=== PATIENT | male | born 1940 | race Caucasian/White ===

== ENCOUNTER 2023-12-26 23:50 | Inpatient (IN) | payer MEDICARE, MEDICAID ==
[~2023-12-26] VITALS: Ht 170.2 cm; Wt 86.7 kg
[2023-12-26 23:55] VITALS: PULSE 87; RESP 22; O2SAT 97
[2023-12-27] VITALS (42 sets, daily range): BP systolic 101–146; BP diastolic 58–102; PULSE 80–101; RESP 11–30; TEMP 97.2–99.1; O2SAT 84–100
[2023-12-27] MEDS: HEPARIN SODIUM (PORCINE) 5000 UNITS/ML 1ML VIAL IV ONE (00:09)
[2023-12-27] MEDS: MORPHINE SULFATE 4 MG/ML SYR/VIAL IV ONE (00:10)
[2023-12-27] MEDS: NITROGLYCERIN 0.2MG/HR TOPICAL PATCH TD ONE (00:11)
[2023-12-27] MEDS: ONDANSETRON HCL 4 MG/2 ML VIAL IV ONE (00:11)
[2023-12-27 00:22] LABS: Basophils # (auto) 0.1 10 ^3/uL (0-0.2); Basophils % (auto) 0.7 % (0.0-2.0); Eosinophils # (auto) 0.3 10 ^3/uL (0-0.8); Eosinophils % (auto) 3.8 % (0.0-7.0); Hematocrit 50.3 % (41.0-53.0); Hemoglobin 17.5 g/dL (13.5-17.5); Lymphocytes # (auto) 3.9 10 ^3/uL (0.4-5.4); Mean Corpuscular Hemoglobin 30.4 pg (28.0-32.0); Mean Corpuscular Hgb Conc. 34.8 g/dL (32.0-36.0); Mean Corpuscular Volume 87.3 fL (80.0-100.0); Monocytes % (auto) 10.5 % (0.0-12.0); Neutrophils # (auto) 3.8 10 ^3/uL (1.6-8.6); Nucleated Red Blood Cells % 0.2 %; Platelet Count (auto) 244 10^3/uL (140-450); Red Blood Cells 5.76 10^6/uL (4.5-5.90); White Blood Cell 9.1 10^3/uL (4.4-10.8)
[2023-12-27] MEDS: VERAPAMIL 2.5MG/ML INJ 2ML VIAL IV ONE ×2 (00:24→01:19)
[2023-12-27] MEDS: ANGIOMAX 250 MG VIAL IV ONE (00:24)
[2023-12-27] MEDS: fentaNYL CITRATE 100 MCG/2 ML VL ONE (00:25)
[2023-12-27] MEDS: LIDOCAINE 2%HCL (LOCAL ANESTH.) INJ 20ML MDV ONE (00:25)
[2023-12-27] MEDS: SODIUM CHL 0.9% 50 ML ONE (00:25)
[2023-12-27] MEDS: MIDAZOLAM HCL 2MG/2ML 2ml VIAL (1mg/ml) ONE (00:25)
[2023-12-27] MEDS: IODIXANOL 320MG/ML 100ML BTL IV ONE ×2 (00:26→01:13)
[2023-12-27] MEDS: HEPARIN SODIUM (PORCINE) 5000 UNITS/ML 1ML VIAL ONE (00:28)
[2023-12-27 00:33] LABS: INR 1.03 (0.9-1.15); Partial Thromboplastin Time 26.5 SEC (24.5-34.5); Prothrombin Time 10.9 sec (9.3-11.8)
[2023-12-27 00:34] LABS: Alanine Aminotransferase 32 U/L (7-40); Albumin 4.7 g/dL (3.2-4.8); Alkaline Phosphatase 104 U/L (46-116); Anion Gap 7 (5-15); Aspartate Aminotransferase 25 U/L (13-40); BUN/Creatinine Ratio 19.1 (10.0-20.0); Bilirubin, Total 0.5 mg/dL (0.2-1.0); Blood Urea Nitrogen 18 mg/dL (9-23); Calcium 9.5 mg/dL (8.7-10.4); Carbon Dioxide 24 mmol/L (20-30); Chloride 109 mmol/L (98-107); Glucose 144 mg/dL (74-106); Potassium 4.1 mmol/L (3.5-5.1); Sodium 140 mmol/L (136-145); Total Protein 7.7 g/dL (5.7-8.2)
[2023-12-27] MEDS: methylPREDNISolone SOD SUCC 125 MG/2 ML VL ONE (00:55)
[2023-12-27] MEDS: ATROPINE SULF 1 MG/10ml SYR ONE (00:55)
[2023-12-27] MEDS: FAMOTIDINE (10MG/ML) 2ML VL IV ONE (00:56)
[2023-12-27] MEDS: EPINEPHrine HCL 1 MG/10 ML SYRG ONE (00:56)
[2023-12-27] MEDS: diphenhdrAMINE HCL 50 MG/1 ML VL ONE (00:56)
[2023-12-27] MEDS: ATROPINE SULFATE 0.4 MG/1 ML VIAL ONE (01:04)
[2023-12-27] MEDS ORDERED: HEPARIN DRIP/D5W 100UNITS/ML 250 ML IV SCH ×3 (01:30→09:15)
[2023-12-27] MEDS: TICAGRELOR 90 MG TAB ONE (01:34)
[2023-12-27] MEDS ORDERED: HYDROcodone-ACET 5/325MG TAB PO PRN (01:45)
[2023-12-27] MEDS ORDERED: ACETAMINOPHEN 500 MG TAB PO PRN (01:45)
[2023-12-27] MEDS ORDERED: NITROGLYCERIN 0.4 MG SL TAB SL PRN ×2 (01:45)
[2023-12-27] MEDS ORDERED: ONDANSETRON HCL 4 MG/2 ML VIAL IV PRN (01:45)
[2023-12-27] MEDS ORDERED: MORPHINE SULFATE 4 MG/ML SYR/VIAL IV PRN (01:45)
[2023-12-27] MEDS ORDERED: MORPHINE SULFATE INJ 2 MG/ml SYRG IV PRN (01:45)
[2023-12-27] MEDS: ATORVASTATIN 20 MG TAB PO ONE (02:00)
[2023-12-27] MEDS: HEPARIN DRIP/D5W 100UNITS/ML 250 ML IV SCH (02:37)
[2023-12-27 02:58] LABS: Alanine Aminotransferase 32 U/L (7-40); Albumin 4.3 g/dL (3.2-4.8); Alkaline Phosphatase 93 U/L (46-116); Anion Gap 3 (5-15); Aspartate Aminotransferase 45 U/L (13-40); BUN/Creatinine Ratio 16.5 (10.0-20.0); Blood Urea Nitrogen 17 mg/dL (9-23); Carbon Dioxide 26 mmol/L (20-30); Chloride 110 mmol/L (98-107); Glucose 136 mg/dL (74-106); Potassium 4.6 mmol/L (3.5-5.1); Sodium 139 mmol/L (136-145)
[2023-12-27 02:59] LABS: Bilirubin, Total 0.4 mg/dL (0.2-1.0); Total Protein 7.3 g/dL (5.7-8.2)
[2023-12-27] MEDS: SODIUM CHLOR 0.9% PF (SALINE LOCK) 10ML VIAL/SYR IV SCH (07:22)
[2023-12-27 08:18] LABS: INR 1.03 (0.9-1.15); Partial Thromboplastin Time 62.3 SEC (24.5-34.5); Prothrombin Time 10.9 sec (9.3-11.8)
[2023-12-27] MEDS: ASPirin 81 mg TAB PO SCH (10:01)
[2023-12-27] MEDS: TICAGRELOR 90 MG TAB PO SCH (10:02)
[2023-12-27] MEDS: LISINOPRIL 5 MG TAB PO SCH (10:02)
[2023-12-27] MEDS: ATORVASTATIN 20 MG TAB PO SCH (21:06)
[2023-12-27 22:44] LABS: Urine Bacteria MANY /hpf (None Seen); Urine Blood 1+ /uL (Negative); Urine Clarity Turbid (Clear); Urine Color Colorless (Yellow); Urine Protein, UAD TRACE (Negative); Urine Specific Gravity 1.016 (1.001-1.035); Urine Urobilinogen Normal (Negative); Urine WBC 592 /hpf (0 - 3); Urine pH 5.5 (5.0-9.0)
[2023-12-28] VITALS (29 sets, daily range): BP systolic 117–155; BP diastolic 77–101; PULSE 93–126; RESP 14–33; TEMP 98.3–99.5; O2SAT 92–100
[2023-12-28 03:30] LABS: Basophils # (auto) 0 10 ^3/uL (0-0.2); Basophils % (auto) 0.2 % (0.0-2.0); Eosinophils # (auto) 0 10 ^3/uL (0-0.8); Eosinophils % (auto) 0.1 % (0.0-7.0); Hemoglobin 17.2 g/dL (13.5-17.5); Lymphocytes # (auto) 1.8 10 ^3/uL (0.4-5.4); Lymphocytes % (auto) 12.3 % (10.0-50.0); Mean Corpuscular Hemoglobin 30.5 pg (28.0-32.0); Mean Corpuscular Hgb Conc. 35.1 g/dL (32.0-36.0); Mean Corpuscular Volume 86.9 fL (80.0-100.0); Monocytes # (auto) 1.4 10 ^3/uL (0-1.3); Monocytes % (auto) 9.6 % (0.0-12.0); Neutrophils # (auto) 11.2 10 ^3/uL (1.6-8.6); Neutrophils % (auto) 77.8 % (37.0-80.0); Nucleated Red Blood Cells % 0.1 %; Platelet Count (auto) 244 10^3/uL (140-450); Red Blood Cells 5.64 10^6/uL (4.5-5.90); Red Cell Distribution Width 14.9 % (11.8-14.3); White Blood Cell 14.3 10^3/uL (4.4-10.8)
[2023-12-28 03:47] LABS: Alanine Aminotransferase 48 U/L (7-40); Albumin 4.4 g/dL (3.2-4.8); Alkaline Phosphatase 92 U/L (46-116); Anion Gap 7 (5-15); Aspartate Aminotransferase 127 U/L (13-40); Blood Urea Nitrogen 19 mg/dL (9-23); Calcium 9.6 mg/dL (8.7-10.4); Carbon Dioxide 24 mmol/L (20-30); Chloride 106 mmol/L (98-107); Cholesterol 187 mg/dL (< 200); Glucose 135 mg/dL (74-106); LDL Cholesterol 113 mg/dL (< 100); Sodium 137 mmol/L (136-145); Triglycerides 80 mg/dL (< 150)
[2023-12-28 03:48] LABS: Bilirubin, Total 0.7 mg/dL (0.2-1.0); HDL Cholesterol 53 mg/dL (40-59); Total Protein 7.6 g/dL (5.7-8.2)
[2023-12-28] MEDS: IODIXANOL 320MG/ML 100ML BTL IV ONE (12:53)
[2023-12-28] MEDS: LIDOCAINE 2%HCL (LOCAL ANESTH.) INJ 20ML MDV ONE (12:53)
[2023-12-28] MEDS: ANGIOMAX 250 MG VIAL IV ONE (12:56)
[2023-12-28] MEDS: fentaNYL CITRATE 100 MCG/2 ML VL ONE (12:56)
[2023-12-28] MEDS: VERAPAMIL 2.5MG/ML INJ 2ML VIAL IV ONE (12:56)
[2023-12-28] MEDS: HEPARIN SODIUM (PORCINE) 5000 UNITS/ML 1ML VIAL ONE (12:56)
[2023-12-28] MEDS: MIDAZOLAM HCL 2MG/2ML 2ml VIAL (1mg/ml) ONE (12:57)
[2023-12-28] MEDS: SODIUM CHL 0.9% 50 ML ONE (12:57)
[2023-12-28] MEDS: ASPirin 81 mg TAB ONE (13:54)
[2023-12-28] MEDS: TICAGRELOR 90 MG TAB ONE (13:54)
[2023-12-29] VITALS (8 sets, daily range): BP systolic 100–143; BP diastolic 64–93; PULSE 84–126; RESP 16–24; TEMP 98.3–98.7; O2SAT 89–97
[2023-12-29] MEDS: LORazepam 0.5 MG TAB PO PRN (01:32)
[2023-12-29 05:14] LABS: Basophils # (auto) 0 10 ^3/uL (0-0.2); Basophils % (auto) 0.2 % (0.0-2.0); Eosinophils # (auto) 0 10 ^3/uL (0-0.8); Eosinophils % (auto) 0.1 % (0.0-7.0); Hematocrit 48.3 % (41.0-53.0); Hemoglobin 17.1 g/dL (13.5-17.5); Lymphocytes # (auto) 1.3 10 ^3/uL (0.4-5.4); Lymphocytes % (auto) 11.1 % (10.0-50.0); Mean Corpuscular Hemoglobin 30.7 pg (28.0-32.0); Mean Corpuscular Hgb Conc. 35.4 g/dL (32.0-36.0); Mean Corpuscular Volume 86.9 fL (80.0-100.0); Monocytes # (auto) 1.9 10 ^3/uL (0-1.3); Monocytes % (auto) 16.4 % (0.0-12.0); Neutrophils # (auto) 8.5 10 ^3/uL (1.6-8.6); Neutrophils % (auto) 72.2 % (37.0-80.0); Nucleated Red Blood Cells % 0.1 %; Platelet Count (auto) 224 10^3/uL (140-450); Red Blood Cells 5.56 10^6/uL (4.5-5.90); Red Cell Distribution Width 14.9 % (11.8-14.3); White Blood Cell 11.7 10^3/uL (4.4-10.8)
[2023-12-29 05:21] LABS: Alanine Aminotransferase 36 U/L (7-40); Albumin 4.2 g/dL (3.2-4.8); Alkaline Phosphatase 83 U/L (46-116); Anion Gap 10 (5-15); Aspartate Aminotransferase 56 U/L (13-40); BUN/Creatinine Ratio 24.7 (10.0-20.0); Blood Urea Nitrogen 24 mg/dL (9-23); Carbon Dioxide 20 mmol/L (20-30); Chloride 105 mmol/L (98-107); Glucose 126 mg/dL (74-106); Potassium 3.3 mmol/L (3.5-5.1); Sodium 135 mmol/L (136-145)
[2023-12-29 05:22] LABS: Bilirubin, Total 1.2 mg/dL (0.2-1.0); Total Protein 7.1 g/dL (5.7-8.2)
[2023-12-29] MEDS ORDERED: CARV-214 PO (09:50)
[2023-12-29] MEDS ORDERED: LISI-275 PO (09:50)
[2023-12-29] MEDS ORDERED: ASPI-325 PO (09:50)
[2023-12-29] MEDS ORDERED: ATOR20TA50 PO (09:50)
[2023-12-29] MEDS ORDERED: TICA90TA PO (09:50)
[2023-12-29] MEDS: POTASSIUM CHL 20 Meq TABLET PO ONE (09:51)
[2023-12-30] VITALS (10 sets, daily range): BP systolic 99–148; BP diastolic 62–91; PULSE 73–115; RESP 16–22; TEMP 97.8–98.6; O2SAT 92–96
[2023-12-30] MEDS ORDERED: CLOP75TA28 PO (10:06)
[2023-12-30] MEDS: CLOPIDOGREL BISULFATE 75 MG TAB PO ONE (11:29)
[2023-12-31] VITALS (7 sets, daily range): BP systolic 120–157; BP diastolic 64–87; PULSE 85–95; RESP 16–23; TEMP 98.3–98.5; O2SAT 95–100
[2023-12-31] MEDS: CLOPIDOGREL BISULFATE 75 MG TAB PO SCH (08:04)
== END 2023-12-31 13:15 | disposition home health service (06) | DRG 174 ==
LOC: EDBD 23:50 → ER 23:50 → TELE 12-27 01:41 → ICU WEST 12-27 01:55 → TELE-CENTR 12-28 17:00
PROVIDERS: ADMIT Internal Medicine; ATTEND Internal Medicine
PROC: 027034Z Dilation of Coronary Artery, One Artery with Drug-eluting Intraluminal Device, Percutaneous Approach (ICD-10-PCS; principal; 2023-12-27)
PROC: B211YZZ Fluoroscopy of Multiple Coronary Arteries using Other Contrast (ICD-10-PCS; 2023-12-27)
PROC: B215YZZ Fluoroscopy of Left Heart using Other Contrast (ICD-10-PCS; 2023-12-27)
PROC: 4A023N7 Measurement of Cardiac Sampling and Pressure, Left Heart, Percutaneous Approach (ICD-10-PCS; 2023-12-27)
PROC: 027035Z Dilation of Coronary Artery, One Artery with Two Drug-eluting Intraluminal Devices, Percutaneous Approach (ICD-10-PCS; 2023-12-28)
PROC: 3E03317 Introduction of Other Thrombolytic into Peripheral Vein, Percutaneous Approach (ICD-10-PCS; 2023-12-28)
DX: I21.11 ST elevation (STEMI) myocardial infarction involving right coronary artery (principal); J96.00 Acute respiratory failure, unspecified whether with hypoxia or hypercapnia; I44.2 Atrioventricular block, complete; E66.9 Obesity, unspecified; G89.29 Other chronic pain; E78.5 Hyperlipidemia, unspecified; R74.01 Elevation of levels of liver transaminase levels; I10 Essential (primary) hypertension; I25.10 Atherosclerotic heart disease of native coronary artery without angina pectoris; I25.2 Old myocardial infarction; Z68.29 Body mass index [BMI] 29.0-29.9, adult; Z91.013 Allergy to seafood; Z79.899 Other long term (current) drug therapy; Z79.82 Long term (current) use of aspirin
CPT/HCPCS: 36415; 71045; 80053; 80061; 81001; 82962; 83880; 84484; 85025; 85379; 85610; 85730; 87081; 92941; 93005; 93306; 93458; 97163; 99152; 99291; C1751; C1874; C1887; G0378; J0461; J2250; J2405; J3490; Q9967

== ENCOUNTER 2024-10-18 02:23 | Inpatient (IN) | payer OTHER, MEDICARE, MEDICAID ==
[~2024-10-18] VITALS: Ht 170.2 cm; Wt 82.5 kg
[2024-10-18] VITALS (8 sets, daily range): BP systolic 94–153; BP diastolic 57–90; PULSE 32–79; RESP 12–18; TEMP 96.3–97.9; O2SAT 92–98
[~2024-10-18 02:23] MED LIST: ASPI-325 PO; ATOR20TA50 PO; CARV-214 PO; CLOP75TA28 PO; LISI-275 PO
--- NOTE | 2024-10-18 02:53 | ED.PDOC ---
History of Present Illness HPI Comments 84-year-old male brought in by ambulance from home after his ex- called the ambulance because the patient is has some generalized weakness and she noted that his heart rate was low. Patient states he takes metoprolol beta chelsie. Patient has no other complaints other than feeling some generalized weakness and fatigue Chief Complaint: General Weakness Time Seen by MD: 02:27 Allergies: Coded Allergies: NO KNOWN ALLERGIES (Unverified , 12/27/23) Home Meds Active Scripts Clopidogrel Bisulfate (Plavix) 75 Mg Tab, 1 TAB PO DAILY PRN for 3 Days, #3 TAB 3 Refills Prov:VAZQUEZ MARTINEZ MD 12/30/23 Carvedilol (COREG) 3.125 Mg Tab, 3.125 MG PO BID for 30 Days, #60 TAB 3 Refills Prov:VAZQUEZ MARTINEZ MD 12/29/23 Lisinopril (Lisinopril) 5 Mg Tab, 2.5 MG PO DAILY for 30 Days, #15 TAB 3 Refills Prov:VAZQUEZ MARTINEZ MD 12/29/23 Atorvastatin Calcium (ATORVASTATIN CALCIUM) 20 Mg Tab, 40 MG PO HS for 30 Days, #30 TAB 3 Refills Prov:VAZQUEZ MARTINEZ MD 12/29/23 Aspirin (Aspirin Low Dose) 81 Mg Tab, 81 MG PO DAILY for 30 Days, #30 TAB 3 Refills Prov:VAZQUEZ MARTINEZ MD 12/29/23 Information Source: Patient, Emergency Med Personnel Mode of Arrival: EMS Severity: Moderate Timing: Days Duration: Since onset Past Medical History PAST MEDICAL HISTORY: HTN Surgical History: Denies all surgeries Family History Family History: Unknown Social History Smoker: Non-Smoker Alcohol: Denies ETOH Use Drugs: Denies Drug Use Lives In: Home Constitutional: reports: fatigue, weakness Cardiovascular: reports: others (slow heart rate) All Other Systems: Reviewed and Negative Physical Exam General Appearance: Mild Distress HEENT: Normal ENT Inspection, Pharynx Normal, TMs Normal Neck: Full Range of Motion, Non-Tender, Normal, Normal Inspection Respiratory: Chest Non-Tender, Lungs Clear, No Accessory Muscle Use, No Respiratory Distress, Normal Breath Sounds Cardiovascular: Other (bradycardia, regular rhythm) Breast Exam: Deferred Gastrointestinal: No Organomegaly, Non Tender, No Pulsatile Mass, Normal Bowel Sounds, Soft Genitalia: Deferred Pelvic: Deferred Rectal: Deferred Extremities: No calf tenderness, Normal capillary refill, Normal inspection, Normal range of motion, Non-tender, No pedal edema Musculoskeletal : Apperance: Normal Neurologic: Alert, checker loader II-XII nml as Tested, No Motor Deficits, Normal Affect, Normal Mood, No Sensory Deficits Cerebellar Function: Normal Reflexes: Normal Skin: Dry, Normal Color, Warm Lymphatic: No Adenopathy Was a procedure done? Was a procedure done?: No Differential Dx Considerations may include: Differential diagnosis includes but is not limited to: coronary ischemia, dehydration, sepsis, electrolyte abnormality, symptomatic anemia, hypovolemia and others X-Ray, Labs, Meds, VS Vital Signs Date Time Temp Pulse Resp B/P (MAP) Pulse Ox O2 Delivery O2 Flow Rate FiO2 10/18/24 02:55 98.7 16 125/62 (83) 96 98.7 10/18/24 02:55 32 18 98 Room Air* 0 21 10/18/24 02:26 103 10/18/24 02:26 97.5 21 16 118/84 (95) 98 97.5 Lab Test 10/18/24 03:40 10/18/24 02:52 10/18/24 02:48 Range/Units Troponin I High Sensitivity 5 5 </=54 ng/L POC Glucose 118 H 70-106 mg/dl White Blood Count 7.6 4.4-10.8 10^3/uL Red Blood Count 5.26 4.5-5.90 10^6/uL Hemoglobin 16.0 13.5-17.5 g/dL Hematocrit 46.4 41.0-53.0 % Mean Corpuscular Volume 88.2 80.0-100.0 fL Mean Corpuscular Hemoglobin 30.5 28.0-32.0 pg Mean Corpuscular Hemoglobin Concent 34.5 32.0-36.0 g/dL Red Cell Distribution Width 14.7 H 11.8-14.3 % Platelet Count 228 140-450 10^3/uL Mean Platelet Volume 7.7 6.9-10.8 fL Neutrophils (%) (Auto) 41.5 37.0-80.0 % Lymphocytes (%) (Auto) 41.4 10.0-50.0 % Monocytes (%) (Auto) 11.6 0.0-12.0 % Eosinophils (%) (Auto) 4.5 0.0-7.0 % Basophils (%) (Auto) 1.0 0.0-2.0 % Neutrophils # (Auto) 3.1 1.6-8.6 10 ^3/uL Lymphocytes # (Auto) 3.1 0.4-5.4 10 ^3/uL Monocytes # (Auto) 0.9 0-1.3 10 ^3/uL Eosinophils # (Auto) 0.3 0-0.8 10 ^3/uL Basophils # (Auto) 0.1 0-0.2 10 ^3/uL Nucleated Red Blood Cells 0.2 % Prothrombin Time 10.9 9.3-11.8 sec Prothrombin Time INR 1.03 0.9-1.15 Activated Partial Thromboplast Time 27.1 24.5-34.5 SEC Sodium Level 142 136-145 mmol/L Potassium Level 4.3 3.5-5.1 mmol/L Chloride Level 107 98-107 mmol/L Carbon Dioxide Level 26 20-31 mmol/L Anion Gap 9 5-15 Blood Urea Nitrogen 23 9-23 mg/dL Creatinine 1.13 0.700-1.30 mg/dL Glomerular Filtration Rate Calc 64 >90 mL/min BUN/Creatinine Ratio 20.4 H 10.0-20.0 Serum Glucose 118 H 74-106 mg/dL Calcium Level 8.9 8.7-10.4 mg/dL Magnesium Level 2.2 1.6-2.6 mg/dL Total Bilirubin 0.7 0.2-1.0 mg/dL Aspartate Amino Transferase (AST) 25 <34 U/L Alanine Aminotransferase (ALT) 30 7-40 U/L Alkaline Phosphatase 91 46-116 U/L B-Type Natriuretic Peptide 48.22 0-100 pg/mL Total Protein 6.9 5.7-8.2 g/dL Albumin 4.3 3.2-4.8 g/dL Thyroid Stimulating Hormone (TSH) 2.15 0.55-4.78 uIU/mL [facility] [id number] [place] [id number] Ph: [phone] DIAGNOSTIC IMAGING Diagnostic Imaging Report : [id number] Signed PATIENT: TAYLOR TEJEDA ACCT: [id number] UNIT: [id number] : 1940 LOC: ER ROOM / BED: / AGE / SEX: 84 / M ADM STATUS: REG ER SERVICE [id number] ORDERING PHYSICIAN: SARAH EID MD PROCEDURE(s): CXRP - CHEST PORTABLE REASON: chest pain ORDER NUMBER(s): [id number], ACCESSION NUMBER(s): [id number] CHEST RADIOGRAPH Indication: chest pain Technique: Single frontal view of the chest was obtained COMPARISON: XY CHEST PORTABLE on DOS: 12/28/23, XY CHEST PORTABLE on DOS: 12/27/23 FINDINGS: Lines and Tubes: None Lungs: Mild medial right lung base pulmonary airspace disease. The remaining lung zones are clear without evidence of focal consolidation. Pleura: No effusion. No pneumothorax. Cardiomediastinal contours: Unremarkable Bones: Unremarkable IMPRESSION: 1. Mild medial right lung base pulmonary airspace disease. ATED BY: JHONNY HART MD DICTATED DATE/TIME: 10/18/24323 SIGNED BY: JHONNY HART MD SIGNED DATE/TIME: 10/18/24323 CC: Time of 1ST Reevaluation: 02:45 Reevaluation 1ST: Unchanged Patient Education/Counseling: Diagnosis, Treatment Family Education/Counseling: No Family Present SEPSIS Sepsis Screen Recent Procedure: No On Antibiotic Therapy: No Respiratory Rate >20: No Heart Rate >90: No Temp<36 C (96.8 F) or >38.3 C: No SBP <90 or MAP <65 mmHG: No New Acute Mental Status Change: No Is the patient on CPAP, BIPAP,: No IV fluid challenge completed?: No Orders/Vitals/Labs Physician Orders Chest Portable (10/18/24 02:39) Net Front End Developer (10/18/24 02:39) Electrocardigram (10/18/24 02:39) Troponin-I Hs (10/18/24 05:39) Vital Signs Date Time Temp Pulse Resp B/P (MAP) Pulse Ox O2 Delivery O2 Flow Rate FiO2 10/18/24 02:55 98.7 16 125/62 (83) 96 98.7 10/18/24 02:55 32 18 98 Room Air* 0 21 10/18/24 02:26 103 10/18/24 02:26 97.5 21 16 118/84 (95) 98 97.5 Laboratory Tests Test 10/18/24 02:48 White Blood Count 7.6 10^3/uL (4.4-10.8) Departure 1 Departure Time of Disposition: 04:36 Impression: Primary Impression: Symptomatic bradycardia Additional Impression: Pneumonitis Disposition: ADMITTED INPATIENT Condition: Guarded Discharged With: Self Comments Symptomatic Bradycardia with Suspected Pneumonia Chief Complaint: Generalized weakness for two days with bradycardia History of Present Illness: 84-year-old male brought in by ambulance with complaints of generalized weakness for the past two days. Patient's ex- noted that his heart rate was low. The patient reports compliance with his medication regimen, which includes metoprolol, a beta-chelsie. He has a known history of hypertension. Upon initial evaluation, the patient was found to be severely bradycardic with heart rate in the twenties, which later decreased to the thirties on reevaluation. Review of Systems: Constitutional: Positive for generalized weakness. Cardiovascular: Positive for bradycardia. Respiratory: Possible respiratory symptoms given radiographic findings of right lung base abnormality. All other systems: Deferred or unremarkable based on available information. Medications: Metoprolol (dose not specified) Other medications not specified in mangle feeder Vital Signs: Heart Rate: Initially in the twenties, later in the thirties Other vital signs not documented in mangle feeder Physical Exam: General: 84-year-old male in no acute distress. Cardiovascular: Severely bradycardic with heart rate in the twenties initially, later in the thirties. Remainder of physical exam described as unremarkable. Lab Results: CBC: Unremarkable Chemistry panel: Unremarkable Troponin: Normal Imaging and Other Relevant Results: Chest X-ray: Shows airspace disease versus atelectasis in the right lung base Medical Decision Making: Summary Statement: 84-year-old male with history of hypertension on metoprolol presenting with symptomatic bradycardia and radiographic findings concerning for pneumonia. Problem List: 1. Symptomatic bradycardia (HR 20s-30s) 2. Suspected pneumonia 3. Hypertension Differential Diagnosis: For bradycardia: Beta-chelsie effect, sick sinus syndrome, AV block, electrolyte abnormalities, hypothyroidism, increased vagal tone. For lung findings: Pneumonia, atelectasis, pulmonary edema, malignancy. ED Course: Patient evaluated for generalized weakness and found to be severely bradycardic. Labs were unremarkable including normal troponin. Chest X-ray revealed possible pneumonia. Patient was treated with Rocephin and azithromycin for suspected pneumonia. Decision made to admit for management of symptomatic bradycardia and pneumonia. Assessment and Plan: 1. Symptomatic Bradycardia: - Heart rate in 20s-30s, likely exacerbated by metoprolol - Consider temporary hold of beta-chelsie - Cardiac monitoring - Cardiology consultation for possible temporary pacemaker if bradycardia persists - Evaluate for underlying causes including infection 2. Suspected Pneumonia: - Right lung base infiltrate on chest X-ray - Started on Rocephin and azithromycin - Monitor respiratory status - Consider respiratory cultures if available 3. Hypertension: - Chronic condition, currently on metoprolol - Will need to reassess antihypertensive regimen given bradycardia Disposition: Admit to telemetry unit for management of symptomatic bradycardia and treatment of suspected pneumonia. Additional Notes: Patient admitted for symptomatic bradycardia and suspected pneumonia Billing Information: ICD-10: R00.1 - Bradycardia, unspecified ICD-10: J18.9 - Pneumonia, unspecified organism ICD-10: I10 - Essential (primary) hypertension Critical Care Note Critical Care Time?: Yes (35 min-critical care time only) Critical care comment: Total critical care time: Approximately 36 minutes Due to a high probability of clinically significant, life threatening deterioration, the patient required my highest level of preparedness to intervene emergently and I personally spent this critical care time directly and personally managing the patient. This critical care time included obtaining a history; examining the patient; pulse oximetry; ordering and review of studies; arranging urgent treatment with development of a management plan; evaluation of patient's response to treatment; frequent reassessment; and, discussions with other providers. This critical care time was performed to assess and manage the high probability of imminent, life-threatening deterioration that could result in multi-organ failure. It was exclusive of separately billable procedures and treating other patients. Stability Stability form required: No Heart Score Heart Score: Heart Score Response (Comments) Value History Slightly Suspicious 0 EKG Repolarization Disturb 1 Age >65 2 Risk Factors 1 or 2 risk factors 1 Troponin Normal limit 0 Total 4 I personally scribed for SARAH EID MD ([email or web address]) on 10/18/24 at 04:05. Electronically submitted by Bennie Salcido ([email or web address]). SARAH EID MD Oct 18, 2024 02:53
[2024-10-18 02:58] LABS: Basophils # (auto) 0.1 10 ^3/uL (0-0.2); Eosinophils # (auto) 0.3 10 ^3/uL (0-0.8); Eosinophils % (auto) 4.5 % (0.0-7.0); Hematocrit 46.4 % (41.0-53.0); Lymphocytes # (auto) 3.1 10 ^3/uL (0.4-5.4); Lymphocytes % (auto) 41.4 % (10.0-50.0); Mean Corpuscular Hemoglobin 30.5 pg (28.0-32.0); Mean Corpuscular Hgb Conc. 34.5 g/dL (32.0-36.0); Mean Corpuscular Volume 88.2 fL (80.0-100.0); Monocytes # (auto) 0.9 10 ^3/uL (0-1.3); Monocytes % (auto) 11.6 % (0.0-12.0); Neutrophils # (auto) 3.1 10 ^3/uL (1.6-8.6); Neutrophils % (auto) 41.5 % (37.0-80.0); Nucleated Red Blood Cells % 0.2 %; Platelet Count (auto) 228 10^3/uL (140-450); Red Blood Cells 5.26 10^6/uL (4.5-5.90); Red Cell Distribution Width 14.7 % (11.8-14.3); White Blood Cell 7.6 10^3/uL (4.4-10.8)
[2024-10-18 03:13] LABS: INR 1.03 (0.9-1.15); Partial Thromboplastin Time 27.1 SEC (24.5-34.5); Prothrombin Time 10.9 sec (9.3-11.8)
[2024-10-18 03:18] LABS: Alanine Aminotransferase 30 U/L (7-40); Albumin 4.3 g/dL (3.2-4.8); Alkaline Phosphatase 91 U/L (46-116); Anion Gap 9 (5-15); Aspartate Aminotransferase 25 U/L (<34); BUN/Creatinine Ratio 20.4 (10.0-20.0); Bilirubin, Total 0.7 mg/dL (0.2-1.0); Blood Urea Nitrogen 23 mg/dL (9-23); Calcium 8.9 mg/dL (8.7-10.4); Carbon Dioxide 26 mmol/L (20-31); Magnesium 2.2 mg/dL (1.6-2.6); Potassium 4.3 mmol/L (3.5-5.1); Sodium 142 mmol/L (136-145); Total Protein 6.9 g/dL (5.7-8.2)
[2024-10-18 03:20] LABS: Chloride 107 mmol/L (98-107); Glucose 118 mg/dL (74-106)
--- NOTE | 2024-10-18 03:26 | DVH ---
CHEST RADIOGRAPH Indication: chest pain Technique: Single frontal view of the chest was obtained COMPARISON: XY CHEST PORTABLE on DOS: 12/28/23, XY CHEST PORTABLE on DOS: 12/27/23 FINDINGS: Lines and Tubes: None Lungs: Mild medial right lung base pulmonary airspace disease. The remaining lung zones are clear wit hout evidence of focal consolidation. Pleura: No effusion. No pneumothorax. Cardiomediastinal contours: Unremarkable Bones: Unremarkable IMPRESSION: 1. Mild medial right lung base pulmonary airspace disease.
[2024-10-18] MEDS: cefTRIAXone 1GM/50ML D5W 50 ML IV ONE (05:26)
[2024-10-18 05:39] LABS: Lactic Acid w/Reflex 2.8 mmol/L (0.4-2.0)
[2024-10-18] MEDS ORDERED: ACETAMINOPHEN 325 MG TAB PO PRN (07:15)
[2024-10-18] MEDS ORDERED: DOCUSATE SOD 100 MG CAP PO PRN (07:15)
[2024-10-18] MEDS ORDERED: NITROGLYCERIN 0.4 MG SL TAB SL PRN (07:15)
[2024-10-18] MEDS ORDERED: MORPHINE SULFATE INJ 2 MG/ml SYRG IV PRN (07:15)
[2024-10-18] MEDS ORDERED: ONDANSETRON HCL 4 MG/2 ML VIAL IV PRN (07:15)
--- NOTE | 2024-10-18 07:47 | DVHHP2 ---
History of Present Illness Reason for Visit: Generalized weakness History of Present Illness Anuj Colin is an 84-year-old male with past medical history of STEMI December 2023, who was brought to the hospital via EMS for generalized weakness and bradycardia. Patient states he lives with his ex and she called EMS, he is not sure why. On assessment patient is alert and oriented x 2. He can tell me his name and that he is in the hospital, but is unclear on the date or why he is here. Per the nurse at the bedside, the patient was A&O x 4 on arrival, he has not slept all night and thinks he is just tired. Per EMS the ex called EMS because of generalized weakness. When they arrived his heart rate was in the 20's. Since being in the ER he has been in the 30-40's. BP is stable. Patient was seen and treated here in December 2023 for STEMI with the culprit lesion being the RCA. During the procedure he went into heart block, requiring temporary pacing. Cardiovascular: CAD, [place] (STEMI December 2023) Past Surgical History: None Smoke: No ALCOHOL: none Drugs: None Lives: with Family Domestic Violence: Neg Review of Systems Constitutional: Yes: Weakness, Malaise; No: Fever, Chills, Sweats, Other Eyes: No: Pain, Vision change, Conjunctivae inflammation, Eyelid inflammation, Other, Redness ENT: No: Ear pain, Ear discharge, Nose pain, Nose discharge, Nose congestion, Mouth pain, Mouth swelling, Throat pain, Throat swelling, Other Respiratory: No: Cough, Dry, Shortness of breath, SOB with excertion, Wheezing, Hemoptysis, Pleuritic Pain, Sputum, Wheezing, Other Cardiovascular: No: Chest Pain, Palpitations, Orthopnea, Paroxysmal Noc. Dyspnea, Edema, Lt Headedness, Other Gastrointestinal: No: Nausea, Vomiting, Abdominal Pain, Diarrhea, Constipation, Melena, Hematochezia, Other Genitourinary: No Dysuria, No Frequency, No Incontinence, No Hematuria, No Retention, No Other Musculoskeletal: No: other, neck pain, shoulder pain, arm pain, back pain, hand pain, leg pain, foot pain Skin: No: Rash, Lesions, Jaundice, Bruising, Other Neurological: No: Weakness, Numbness, Incoordination, Change in speech, Confusion, Seizures, Other Allergies: Coded Allergies: NO KNOWN ALLERGIES (Unverified , 12/27/23) Medications Current Medications Medications Dose Ordered Sig/Ruthie Route Start Time Stop Time Status Last Admin Dose Admin Ondansetron HCl 4 mg Q4HP PRN IV 10/18/24 07:15 Docusate Sodium 100 mg BIDPRN PRN PO 10/18/24 07:15 Acetaminophen 650 mg Q6HP PRN PO 10/18/24 07:15 Nitroglycerin 0.4 mg Q5MINP PRN SL 10/18/24 07:15 Morphine Sulfate 2 mg Q30M PRN IV 10/18/24 07:15 Exam Vital Signs Vital Signs Date Time Temp Pulse Resp B/P (MAP) Pulse Ox O2 Delivery O2 Flow Rate FiO2 10/18/24 07:06 73 10/18/24 06:05 31 116/70 (85) 95 10/18/24 02:55 98.7 98.7 10/18/24 02:55 Room Air* 0 21 General Appearance: Alert, moderate distress, Other (oriented x 2) HEENT: Atraumatic, PERRLA Respiratory: Clear to auscultation, Normal air movement Cardiovascular: Other (bradycardia) Abdominal: Normal bowel sounds, Soft, No tenderness Extremities: No clubbing, No cyanosis, No edema, Normal pulses, No tenderness/swelling Skin: No rashes, No breakdown, No significant lesion Neuro: Normal speech Psych/Mental Status: Mood NL Labs/Xrays Labs Test 10/18/24 06:59 10/18/24 03:40 10/18/24 02:52 10/18/24 02:48 Range/Units Troponin I High Sensitivity 5 </=54 ng/L POC Glucose 118 H 70-106 mg/dl White Blood Count 7.6 4.4-10.8 10^3/uL Red Blood Count 5.26 4.5-5.90 10^6/uL Hemoglobin 16.0 13.5-17.5 g/dL Hematocrit 46.4 41.0-53.0 % Mean Corpuscular Volume 88.2 80.0-100.0 fL Mean Corpuscular Hemoglobin 30.5 28.0-32.0 pg Mean Corpuscular Hemoglobin Concent 34.5 32.0-36.0 g/dL Red Cell Distribution Width 14.7 H 11.8-14.3 % Platelet Count 228 140-450 10^3/uL Mean Platelet Volume 7.7 6.9-10.8 fL Neutrophils (%) (Auto) 41.5 37.0-80.0 % Lymphocytes (%) (Auto) 41.4 10.0-50.0 % Monocytes (%) (Auto) 11.6 0.0-12.0 % Eosinophils (%) (Auto) 4.5 0.0-7.0 % Basophils (%) (Auto) 1.0 0.0-2.0 % Neutrophils # (Auto) 3.1 1.6-8.6 10 ^3/uL Lymphocytes # (Auto) 3.1 0.4-5.4 10 ^3/uL Monocytes # (Auto) 0.9 0-1.3 10 ^3/uL Eosinophils # (Auto) 0.3 0-0.8 10 ^3/uL Basophils # (Auto) 0.1 0-0.2 10 ^3/uL Nucleated Red Blood Cells 0.2 % Prothrombin Time 10.9 9.3-11.8 sec Prothrombin Time INR 1.03 0.9-1.15 Activated Partial Thromboplast Time 27.1 24.5-34.5 SEC Sodium Level 142 136-145 mmol/L Potassium Level 4.3 3.5-5.1 mmol/L Chloride Level 107 98-107 mmol/L Carbon Dioxide Level 26 20-31 mmol/L Anion Gap 9 5-15 Blood Urea Nitrogen 23 9-23 mg/dL Creatinine 1.13 0.700-1.30 mg/dL Glomerular Filtration Rate Calc 64 >90 mL/min BUN/Creatinine Ratio 20.4 H 10.0-20.0 Serum Glucose 118 H 74-106 mg/dL Calcium Level 8.9 8.7-10.4 mg/dL Magnesium Level 2.2 1.6-2.6 mg/dL Total Bilirubin 0.7 0.2-1.0 mg/dL Aspartate Amino Transferase (AST) 25 <34 U/L Alanine Aminotransferase (ALT) 30 7-40 U/L Alkaline Phosphatase 91 46-116 U/L B-Type Natriuretic Peptide 48.22 0-100 pg/mL Total Protein 6.9 5.7-8.2 g/dL Albumin 4.3 3.2-4.8 g/dL Thyroid Stimulating Hormone (TSH) 2.15 0.55-4.78 uIU/mL CHEST RADIOGRAPH FINDINGS: Lines and Tubes: None Lungs: Mild medial right lung base pulmonary airspace disease. The remaining lung zones are clear without evidence of focal consolidation. Pleura: No effusion. No pneumothorax. Cardiomediastinal contours: Unremarkable Bones: Unremarkable IMPRESSION: 1. Mild medial right lung base pulmonary airspace disease. Assessment/Plan Assessment/Plan Assessment: Symptomatic bradycardia, CAD, Obesity, Plan: Admit to Tele, Cardiology consult, ECHO, NPO, 1mg Glucagon given, TSH, Lipid panel, Consider dopamine if patient becomes symptomatic, Home mediations reconciled, beta chelsie held at this time, Plan discussed with: Patient My Orders Orders - ADAM COSTA Procedure Category Date Status Time Admit ADMIT 10/18/24 Transmitted 07:12 Code Status CODE 10/18/24 Transmitted 07:12 Ondansetron Hcl PHA 10/18/24 In Process (Zofran) 07:15 Docusate Sodium PHA 10/18/24 In Process Capsule (Colace 07:15 Complete Blood Count LAB 10/19/24 Verified 04:00 Comprehensive LAB 10/19/24 Verified Metabolic Panel 04:00 Condition: Serious JEROD 10/18/24 In Process 07:12 Acetaminophen Tablet PHA 10/18/24 In Process (Tylenol Tablet) 07:15 Nitroglycerin PHA 10/18/24 In Process Sublingual (Ntrostat 07:15 Morphine Sulfate PHA 10/18/24 In Process Injection 07:15 Stat Ekg For Chest JEROD 10/18/24 In Process Pain 07:12 Notify Md Of Changes JEROD 10/18/24 In Process From Base 07:12 Research Assistant Professor For JEROD 10/18/24 In Process 24 Hours 07:12 Emergency Dysrhythmia JEROD 10/18/24 In Process Protocol 07:12 Rhythm Strips Once JEROD 10/18/24 In Process Every Shift 07:12 Oxygen By Nasal RT 10/18/24 Transmitted Cannula 07:12 * Cardiology Consult CONS 10/18/24 Transmitted 07:12 Npo (Nothing By DIET 10/18/24 Transmitted Mouth) Diet Breakfast Atorvastatin (Lipitor) PHA 10/18/24 Verified 22:00 Date of Service: Oct 18, 2024 Billing Provider: ADAM COSTA Common Visit Codes: [id number] INP/OBS CARE (HIGH) ADAM COSTA Oct 18, 2024 07:47
[2024-10-18] MEDS: AZITHROMYCIN 500MG/ 250ML 250 ML IV ONE (08:00)
[2024-10-18] MEDS: GLUCAGON EMERG KIT 1mg/1ml IV ONE (11:45)
[2024-10-18 12:05] LABS: Triglycerides 101 mg/dL (< 150)
[2024-10-18 12:07] LABS: Cholesterol 177 mg/dL (< 200); HDL Cholesterol 42 mg/dL (40-59)
[2024-10-18 12:09] LABS: LDL Cholesterol 118 mg/dL (< 100)
--- NOTE | 2024-10-18 13:22 | DVHINCON2 ---
Date Seen: Oct 18, 2024 Referring Physician HANSEL Arreola Reason for Consultation Symptomatic bradycardia History of Present Illness This is an 84-year-old male patient who presents to emergency room with chief complaint of generalized weakness. At the time of assessment, the patient is a very poor historian and states that he came via ambulance because his ex- called an ambulance and he is unsure as to why. Called patient's "Olga" who clarified that the patient appeared lethargic to her so she called EMS. Initial twelve lead electrocardiogram reveals sinus tachycardia with trigeminy PVCs, first-degree AV block, and right bundle branch block (reviewed with ). The patient denies any cardiac symptoms at time of assessment. Per ER documentation, the patient was found to be bradycardic at home by EMS. No cardiac strips available to confirm this. Significant past medical history includes coronary artery disease status post PTCA X 3 JOSUE (on Plavix and aspirin), myocardial infarction, hypertension, dyslipidemia, testicular cancer, and morbid obesity. The patient is a very poor historian, previous records from this facility showed that the patient came in as a STEMI on 12/26/2023 in which he underwent stenting to the RCA followed by a staged procedure with stenting to the LAD and circumflex. He denies following up with Cardiology in the outpatient setting. The patient's reports that the patient was recently diagnosed with testicular cancer approximately one year ago and has opted to undergo any kind of treatment and was sent home on hospice. The patient currently receives hospice care at home. Past Medical History Past medical history reviewed. No other significant than mentioned above. Past Surgical History Appendectomy PTCA x 3 JOSUE Family History: Patient reports no known family medical history. Family History Family history reviewed. Social History Denies the use of tobacco, alcohol or illicit drugs. Allergies: Coded Allergies: NO KNOWN ALLERGIES (Unverified , 12/27/23) Home Meds Active Scripts Clopidogrel Bisulfate (Plavix) 75 Mg Tab, 1 TAB PO DAILY PRN for 3 Days, #3 TAB 3 Refills Prov:VAZQUEZ MARTINEZ MD 12/30/23 Carvedilol (COREG) 3.125 Mg Tab, 3.125 MG PO BID for 30 Days, #60 TAB 3 Refills Prov:VAZQUEZ MARTINEZ MD 12/29/23 Lisinopril (Lisinopril) 5 Mg Tab, 2.5 MG PO DAILY for 30 Days, #15 TAB 3 Refills Prov:VAZQUEZ MARTINEZ MD 12/29/23 Atorvastatin Calcium (ATORVASTATIN CALCIUM) 20 Mg Tab, 40 MG PO HS for 30 Days, #30 TAB 3 Refills Prov:VAZQUEZ MARTINEZ MD 12/29/23 Aspirin (Aspirin Low Dose) 81 Mg Tab, 81 MG PO DAILY for 30 Days, #30 TAB 3 Refills Prov:VAZQUEZ MARTINEZ MD 12/29/23 Home Meds Home medications reviewed. Current Medications Current Medications Medications (Trade) Dose Ordered Sig/Ruthie Route PRN Reason Start Time Stop Time Status Last Admin Ondansetron HCl (Zofran) 4 mg Q4HP PRN IV NAUSEA / VOMITING 10/18/24 07:15 Docusate Sodium (Colace Capsule) 100 mg BIDPRN PRN PO FOR CONSTIPATION 10/18/24 07:15 Acetaminophen (Tylenol Tablet) 650 mg Q6HP PRN PO PAIN SCALE 1-3 OR TEMP>100.4 10/18/24 07:15 Nitroglycerin (Ntrostat Sublingual) 0.4 mg Q5MINP PRN SL FOR CHEST PAIN 10/18/24 07:15 Morphine Sulfate 2 mg Q30M PRN IV FOR CHEST PAIN 10/18/24 07:15 Atorvastatin Calcium (Lipitor) 40 mg HS PO 10/18/24 22:00 Review of Systems Constitutional: Generalized weakness Ears, Nose, & Throat: No symptom reported Eyes: No symptom reported Neurological: No symptoms reported Pulmonary/Respiratory: No symptoms reported Cardiovascular: No symptom reported Gastrointestinal: No symptom reported Genitourinary: No symptom reported Musculoskeletal: No symptom reported Skin: No symptom reported Psychiatric: No symptom reported Endocrine: No symptom reported Hematologic/Lymphatic: No symptom reported Vital Signs Vital Signs Date Time Temp Pulse Resp B/P (MAP) Pulse Ox O2 Delivery O2 Flow Rate FiO2 10/18/24 11:26 96.3 76 17 153/81 (105) 95 96.3 10/18/24 08:41 Room Air* 0 21 Physical Exam General Appearance: Cooperative. Obese Pulmonary/Respiratory: Clear, bilateral breaths sounds. Cardiovascular/Chest: Regular rate and rhythm. Peripheral Pulses: 2+ Radial (R). 2+ Radial (L). 2+ Pedal (R). 2+ Pedal (L) Abdominal Exam: Normal bowel sounds. Ankle Exam: Negative ankle edema Lower extremities: Negative lower extremity edema Neuro/Mental Status: A/OX3, coherent. Thoughts/Psych: Normal thought pattern. Appropriate mood and affect. Good judgment and insight. Appearance: No acute distress. Skin Exam: Normal inspection. Normal color. Warm and dry. Labs/Diagnostic Data Labs Test 10/18/24 06:59 10/18/24 03:40 10/18/24 02:52 10/18/24 02:48 Range/Units Lactic Acid Level 1.4 0.4-2.0 mmol/L Troponin I High Sensitivity 5 </=54 ng/L POC Glucose 118 H 70-106 mg/dl White Blood Count 7.6 4.4-10.8 10^3/uL Red Blood Count 5.26 4.5-5.90 10^6/uL Hemoglobin 16.0 13.5-17.5 g/dL Hematocrit 46.4 41.0-53.0 % Mean Corpuscular Volume 88.2 80.0-100.0 fL Mean Corpuscular Hemoglobin 30.5 28.0-32.0 pg Mean Corpuscular Hemoglobin Concent 34.5 32.0-36.0 g/dL Red Cell Distribution Width 14.7 H 11.8-14.3 % Platelet Count 228 140-450 10^3/uL Mean Platelet Volume 7.7 6.9-10.8 fL Neutrophils (%) (Auto) 41.5 37.0-80.0 % Lymphocytes (%) (Auto) 41.4 10.0-50.0 % Monocytes (%) (Auto) 11.6 0.0-12.0 % Eosinophils (%) (Auto) 4.5 0.0-7.0 % Basophils (%) (Auto) 1.0 0.0-2.0 % Neutrophils # (Auto) 3.1 1.6-8.6 10 ^3/uL Lymphocytes # (Auto) 3.1 0.4-5.4 10 ^3/uL Monocytes # (Auto) 0.9 0-1.3 10 ^3/uL Eosinophils # (Auto) 0.3 0-0.8 10 ^3/uL Basophils # (Auto) 0.1 0-0.2 10 ^3/uL Nucleated Red Blood Cells 0.2 % Prothrombin Time 10.9 9.3-11.8 sec Prothrombin Time INR 1.03 0.9-1.15 Activated Partial Thromboplast Time 27.1 24.5-34.5 SEC Sodium Level 142 136-145 mmol/L Potassium Level 4.3 3.5-5.1 mmol/L Chloride Level 107 98-107 mmol/L Carbon Dioxide Level 26 20-31 mmol/L Anion Gap 9 5-15 Blood Urea Nitrogen 23 9-23 mg/dL Creatinine 1.13 0.700-1.30 mg/dL Glomerular Filtration Rate Calc 64 >90 mL/min BUN/Creatinine Ratio 20.4 H 10.0-20.0 Serum Glucose 118 H 74-106 mg/dL Calcium Level 8.9 8.7-10.4 mg/dL Magnesium Level 2.2 1.6-2.6 mg/dL Total Bilirubin 0.7 0.2-1.0 mg/dL Aspartate Amino Transferase (AST) 25 <34 U/L Alanine Aminotransferase (ALT) 30 7-40 U/L Alkaline Phosphatase 91 46-116 U/L B-Type Natriuretic Peptide 48.22 0-100 pg/mL Total Protein 6.9 5.7-8.2 g/dL Albumin 4.3 3.2-4.8 g/dL Triglycerides Level 101 < 150 mg/dL Cholesterol Level 177 < 200 mg/dL LDL Cholesterol 118 H < 100 mg/dL HDL Cholesterol 42 40-59 mg/dL Thyroid Stimulating Hormone (TSH) 1.61 0.55-4.78 uIU/mL Assessment Sinus tachycardia with trigeminy PVCs, first-degree AV block and right bundle branch Coronary artery disease status post PTCA x 3 JOSUE (on ASA and Plavix) Rule out structural heart disease History myocardial infarction Hypertension Dyslipidemia Testicular cancer Obesity Plan/Recommendation We will continue with the following plan/recommendations (Dr. Burton): * Transthoracic echocardiogram to evaluate cardiac function * Avoid AV padmini blocking agents * Continue dual antiplatelet therapy and lipid-lowering agent * Close telemetry monitoring; monitor for any progressive atrioventricular blocks, pauses, or arrhythmias Case discussed with . Thank you for allowing us to care for this patient. Please call with any questions or concerns. Critical care time spent: 44 minutes This medical document was created using an electronic medical record system with voice recognition software and computerized dictation system. Although this d ocument has been carefully reviewed, there might still be some phonetic and typographical errors. Occasional wrong-word or ``sound-alike substitutions may have occurred due to the inherent limitations of voice recognition software. These areas are purely typographical due to imperfections of the software programs and do not reflect any compromise in the patient's medical care. Please read the chart carefully and recognize, using context, where these substitutions have occurred. Plan discussed with: Patient NYHA Physical activity limitations: NA Date of Service: Oct 18, 2024 Billing Provider: BETH SCHAEFFER Cardiology Common Codes: [id number] INP/OBS CARE (High) Cardiology Consultation Codes: [id number] CONSULT <45MIN BETH SCHAEFFER Oct 18, 2024 13:22
--- NOTE | 2024-10-18 13:28 | DVHPN2 ---
Reviewed: Care Plan, H&P, Labs, Medications, Previous Orders, Radiology Changes from previous H/P or p: No Changes Eyes: No Pain, No Vision change, No Conjunctivae inflammation, No Eyelid inflammation, No Other, No Redness ENT: No Ear pain, No Ear discharge, No Nose pain, No Nose discharge, No Nose congestion, No Mouth pain, No Mouth swelling, No Throat pain, No Throat swelling, No Other Cardiovascular: No Chest Pain, No Palpitations, No Orthopnea, No Paroxysmal Noc. Dyspnea, No Edema, No Lt Headedness, No Other Respiratory: No Cough, No Dry, No Shortness of breath, No SOB with excertion, No Wheezing, No Hemoptysis, No Pleuritic Pain, No Sputum, No Other Gastrointestinal: No Nausea, No Vomiting, No Abdominal Pain, No Diarrhea, No Constipation, No Melena, No Hematochezia, No Other Genitourinary: No Dysuria, No Frequency, No Incontinence, No Hematuria, No Retention, No Other Musculoskeletal: No other, No neck pain, No shoulder pain, No arm pain, No back pain, No hand pain, No leg pain, No foot pain Skin: No Rash, No Lesions, No Jaundice, No Bruising, No Other Objective Vitals Vital Signs Date Time Temp Pulse Resp B/P (MAP) Pulse Ox O2 Delivery O2 Flow Rate FiO2 10/18/24 13:06 97.5 73 18 134/90 (105) 95 97.5 10/18/24 08:41 Room Air* 0 21 Medications Current Medications Medications Dose Ordered Sig/Ruthie Route Start Time Stop Time Status Last Admin Dose Admin Ondansetron HCl 4 mg Q4HP PRN IV 10/18/24 07:15 Docusate Sodium 100 mg BIDPRN PRN PO 10/18/24 07:15 Acetaminophen 650 mg Q6HP PRN PO 10/18/24 07:15 Nitroglycerin 0.4 mg Q5MINP PRN SL 10/18/24 07:15 Morphine Sulfate 2 mg Q30M PRN IV 10/18/24 07:15 Atorvastatin Calcium 40 mg HS PO 10/18/24 22:00 Laboratory Results Laboratory Tests 10/18/24 02:48 Chemistry Test 10/18/24 02:48 Albumin 4.3 g/dL (3.2-4.8) Calcium Level 8.9 mg/dL (8.7-10.4) Magnesium Level 2.2 mg/dL (1.6-2.6) Total Protein 6.9 g/dL (5.7-8.2) Coagulation Test 10/18/24 02:48 Prothrombin Time 10.9 sec (9.3-11.8) Prothrombin Time INR 1.03 (0.9-1.15) Activated Partial Thromboplast Time 27.1 SEC (24.5-34.5) Lipid panel Test 10/18/24 02:48 Cholesterol Level 177 mg/dL (< 200) HDL Cholesterol 42 mg/dL (40-59) Triglycerides Level 101 mg/dL (< 150) Cardiac Markers Test 10/18/24 02:48 B-Type Natriuretic Peptide 48.22 pg/mL (0-100) LFT Test 10/18/24 02:48 Alanine Aminotransferase (ALT) 30 U/L (7-40) Alkaline Phosphatase 91 U/L (46-116) Aspartate Amino Transferase (AST) 25 U/L (<34) Total Bilirubin 0.7 mg/dL (0.2-1.0) HgA1c, TSH Test 10/18/24 02:48 Thyroid Stimulating Hormone (TSH) 1.61 uIU/mL (0.55-4.78) Labs and/or images reviewed: Labs reviewed by me, Image(s) reviewed by me Assessment/Plan Assessment/Plan Acute metabolic encephalopathy Acute symptomatic bradycardia with a heart rate of 38: Consult for Dr. Burton, TSH normal History of [place] 2023 Acute lactic acidosis lactic acid 2.8 Patient is hospice revoked Time Spent 25 minutes Patient is full code Advanced care planning time 20 minutes Plan discussed with: Patient Date of Service: Oct 18, 2024 Billing Provider: SISSY BARNARD MD Common Visit Codes: [id number] INP/OBS CARE(HIGH) Secondary Visit Codes: [id number] CARE PLAN 30 MINUTES SISSY BARNARD MD Oct 18, 2024 13:27
[2024-10-18] MEDS: ATORVASTATIN 20 MG TAB PO SCH (21:43)
[2024-10-19] VITALS (8 sets, daily range): BP systolic 92–120; BP diastolic 57–81; PULSE 52–75; RESP 15–18; TEMP 97.2–98; O2SAT 91–98
[2024-10-19 05:41] LABS: Basophils # (auto) 0 10 ^3/uL (0-0.2); Basophils % (auto) 0.5 % (0.0-2.0); Eosinophils # (auto) 0.5 10 ^3/uL (0-0.8); Eosinophils % (auto) 6.1 % (0.0-7.0); Hematocrit 44.8 % (41.0-53.0); Hemoglobin 15.4 g/dL (13.5-17.5); Lymphocytes # (auto) 2.9 10 ^3/uL (0.4-5.4); Lymphocytes % (auto) 39.8 % (10.0-50.0); Mean Corpuscular Hemoglobin 30.3 pg (28.0-32.0); Mean Corpuscular Hgb Conc. 34.4 g/dL (32.0-36.0); Mean Corpuscular Volume 88.1 fL (80.0-100.0); Monocytes # (auto) 0.8 10 ^3/uL (0-1.3); Monocytes % (auto) 11.2 % (0.0-12.0); Neutrophils # (auto) 3.1 10 ^3/uL (1.6-8.6); Neutrophils % (auto) 42.4 % (37.0-80.0); Nucleated Red Blood Cells % 0.2 %; Platelet Count (auto) 198 10^3/uL (140-450); Red Blood Cells 5.09 10^6/uL (4.5-5.90); Red Cell Distribution Width 14.4 % (11.8-14.3); White Blood Cell 7.3 10^3/uL (4.4-10.8)
[2024-10-19 06:05] LABS: Alanine Aminotransferase 25 U/L (7-40); Albumin 3.9 g/dL (3.2-4.8); Alkaline Phosphatase 78 U/L (46-116); Anion Gap 9 (5-15); Aspartate Aminotransferase 23 U/L (<34); BUN/Creatinine Ratio 23.4 (10.0-20.0); Blood Urea Nitrogen 22 mg/dL (9-23); Calcium 8.9 mg/dL (8.7-10.4); Carbon Dioxide 26 mmol/L (20-31); Glucose 100 mg/dL (74-106); Potassium 3.8 mmol/L (3.5-5.1); Sodium 143 mmol/L (136-145); Total Protein 6.5 g/dL (5.7-8.2)
[2024-10-19 06:06] LABS: Bilirubin, Total 0.8 mg/dL (0.2-1.0); Chloride 108 mmol/L (98-107)
[2024-10-19] MEDS: ASPirin-EC 81 mg tab PO SCH (09:49)
[2024-10-19] MEDS: CLOPIDOGREL BISULFATE 75 MG TAB PO SCH (09:49)
--- NOTE | 2024-10-19 10:48 | DVHPN2 ---
Reviewed: Care Plan, H&P, Labs, Medications, Previous Orders, Radiology Changes from previous H/P or p: No Changes Eyes: No Pain, No Vision change, No Conjunctivae inflammation, No Eyelid inflammation, No Other, No Redness ENT: No Ear pain, No Ear discharge, No Nose pain, No Nose discharge, No Nose congestion, No Mouth pain, No Mouth swelling, No Throat pain, No Throat swelling, No Other Cardiovascular: No Chest Pain, No Palpitations, No Orthopnea, No Paroxysmal Noc. Dyspnea, No Edema, No Lt Headedness, No Other Respiratory: No Cough, No Dry, No Shortness of breath, No SOB with excertion, No Wheezing, No Hemoptysis, No Pleuritic Pain, No Sputum, No Other Gastrointestinal: No Nausea, No Vomiting, No Abdominal Pain, No Diarrhea, No Constipation, No Melena, No Hematochezia, No Other Genitourinary: No Dysuria, No Frequency, No Incontinence, No Hematuria, No Retention, No Other Musculoskeletal: No other, No neck pain, No shoulder pain, No arm pain, No back pain, No hand pain, No leg pain, No foot pain Skin: No Rash, No Lesions, No Jaundice, No Bruising, No Other Objective Vitals Vital Signs Date Time Temp Pulse Resp B/P (MAP) Pulse Ox O2 Delivery O2 Flow Rate FiO2 10/19/24 08:46 97.2 58 16 99/57 (71) 96 97.2 10/19/24 08:00 Room Air* 0 21 Intake/Output Intake and Output 10/19/24 07:00 Intake Total 885 ml Output Total 450 ml Balance 435 ml Intake Oral 585 ml IV Total 300 ml Output Urine Total 450 ml # Voids 2 Medications Current Medications Medications Dose Ordered Sig/Ruthie Route Start Time Stop Time Status Last Admin Dose Admin Ondansetron HCl 4 mg Q4HP PRN IV 10/18/24 07:15 Docusate Sodium 100 mg BIDPRN PRN PO 10/18/24 07:15 Acetaminophen 650 mg Q6HP PRN PO 10/18/24 07:15 Nitroglycerin 0.4 mg Q5MINP PRN SL 10/18/24 07:15 Morphine Sulfate 2 mg Q30M PRN IV 10/18/24 07:15 Atorvastatin Calcium 40 mg HS PO 10/18/24 22:00 10/18/24 21:43 40 MG Aspirin 81 mg DAILY PO 10/19/24 10:00 10/19/24 09:49 81 MG Clopidogrel Bisulfate 75 mg DAILY PO 10/19/24 10:00 10/19/24 09:49 75 MG Laboratory Results Laboratory Tests 10/19/24 04:54 Chemistry Test 10/19/24 04:54 Albumin 3.9 g/dL (3.2-4.8) Calcium Level 8.9 mg/dL (8.7-10.4) Total Protein 6.5 g/dL (5.7-8.2) LFT Test 10/19/24 04:54 Alanine Aminotransferase (ALT) 25 U/L (7-40) Alkaline Phosphatase 78 U/L (46-116) Aspartate Amino Transferase (AST) 23 U/L (<34) Total Bilirubin 0.8 mg/dL (0.2-1.0) Microbiology Microbiology Date/Time Source Procedure Growth Status 10/18/24 04:53 Blood Blood Culture - Preliminary NO GROWTH AFTER 24 HOURS OF INCUBATION. Resulted Labs and/or images reviewed: Labs reviewed by me, Image(s) reviewed by me Assessment/Plan Assessment/Plan Sinus tachycardia with trigeminy first-degree AV block and right bundle branch block Acute metabolic encephalopathy Acute symptomatic bradycardia with a heart rate of 38: Consult for Dr. Burton, TSH normal Artery disease Ruled out structural heart disease History of [place] 2023 status post stents continue aspirin Plavix Lipitor Hypertension Hypercholesterolemia: Lipitor History of Testicular cancer Obesity Acute lactic acidosis lactic acid 2.8 Patient is hospice revoked Time Spent 25 minutes Patient is full code Advanced care planning time 20 minutes Olga [phone], not at bed side Plan discussed with: Patient My Orders Orders - SISSY BARNARD MD Procedure Category Date Status Time * Hog Cutter CONS 10/18/24 Transmitted Consult Cardiac DIET 10/18/24 Transmitted Diet-2gna,Lofat,Lochol Dinner Date of Service: Oct 19, 2024 Billing Provider: SISSY BARNARD MD Common Visit Codes: [id number] INP/OBS CARE(HIGH) SISSY BARNARD MD Oct 19, 2024 10:48
--- NOTE | 2024-10-19 13:41 | ECG ---
[facility] Test Date: 2024-10-18 Test Time: 02:26:04 Pat Name: TAYLOR TEJEDA Department: ED Room: 0277T A Gender: M Police Investigator: DIANA : [id number] Requested By: SARAH EID Order Number: [id number] Reading MD: Perez Burton Measurements Intervals [place] Rate: 103 P: 63 [place]: 217 QRS: 115 QRSD: 131 T: -5 QT: 412 QTc: 540 Interpretive Statements Sinus tachycardia Ventricular bigeminy Prolonged [place] interval RBBB and LPFB Baseline wander in lead(s) V3 Electronically Signed On 10-20-2024 21:16:45 PDT by Preez Burton Please click the below link to view image of tracing.
--- NOTE | 2024-10-19 13:50 | DVHPN2 ---
Consult Progress Note Subjective Other Systems: Patient in normal sinus rhythm with PVCs on professor of vegetable science at time of assessment. Objective vital signs Vital Sign Date Time Temp Pulse Resp B/P (MAP) Pulse Ox O2 Delivery O2 Flow Rate FiO2 10/19/24 13:00 97.4 62 17 97/70 (79) 96 97.4 10/19/24 08:00 Room Air* 0 21 Total Intake and Output 10/18/24 10/18/24 10/19/24 15:00 23:00 07:00 Intake Total 300 ml 345 ml 240 ml Output Total 450 ml Balance 300 ml 345 ml -210 ml medications Current Medications Medications Dose Ordered Sig/Ruthie Route Start Time Stop Time Status Last Admin Dose Admin Ondansetron HCl 4 mg Q4HP PRN IV 10/18/24 07:15 Docusate Sodium 100 mg BIDPRN PRN PO 10/18/24 07:15 Acetaminophen 650 mg Q6HP PRN PO 10/18/24 07:15 Nitroglycerin 0.4 mg Q5MINP PRN SL 10/18/24 07:15 Morphine Sulfate 2 mg Q30M PRN IV 10/18/24 07:15 Atorvastatin Calcium 40 mg HS PO 10/18/24 22:00 10/18/24 21:43 40 MG Aspirin 81 mg DAILY PO 10/19/24 10:00 10/19/24 09:49 81 MG Clopidogrel Bisulfate 75 mg DAILY PO 10/19/24 10:00 10/19/24 09:49 75 MG Examination: GENERAL:Abnormal (Generalized weakness), LUNGS:Normal, CVS:Normal (Sinus rhythm with PVCs), NEURO:Normal laboratory and microbiology Laboratory Tests 10/19/24 04:54 Test 10/19/24 04:54 Range/Units Serum Glucose 100 74-106 mg/dL Problem List/Assessment/Plan Problem List/Assessment/Plan Sinus tachycardia with trigeminy PVCs, first-degree AV block and right bundle branch Coronary artery disease status post PTCA x 3 JOSUE (on ASA and Plavix) Rule out structural heart disease History myocardial infarction Hypertension Dyslipidemia Testicular cancer Obesity Plan/Recommendations (Dr. Burton): Case discussed and reviewed with . We will proceed with obtaining a transthoracic echocardiogram to evaluate cardiac function. firer powerhouse events reporting bradycardia overnight with captured heart rates as low as 22bpm. After carefully reviewing events, it appears that the professor of vegetable science is not fully capturing an accurate heart rate given low voltage; thus, these are not true bradycardia events. No actual bradycardia seen on event monitor. Patient in normal sinus rhythm with PVCs. No indication for permanent pacemaker indicated at this time. Continue dual antiplatelet therapy and lipid-lowering agent. Continue close telemetry monitoring. In the setting of an unremarkable transthoracic echocardiogram, there is no further inpatient cardiac workup indicated at this time. Thank you for allowing us to care for this patient. Please call with any questions or concerns. Patient can follow up with Cardiology in the outpatient setting in 1-2 weeks post discharge. Thank you for allowing us to care for this patient. Please call with any questions or concerns. This medical document was created using an electronic medical record system with voice recognition software and computerized dictation system. Although this document has been carefully reviewed, there might still be some phonetic and typographical errors. Occasional wrong-word or ``sound-alike substitutions may have occurred due to the inherent limitations of voice recognition software. These areas are purely typographical due to imperfections of the software programs and do not reflect any compromise in the patient's medical care. Please read the chart carefully and recognize, using context, where these substitutions have occurred. Plan discussed with: Patient, Spouse Date of Service: Oct 19, 2024 Billing Provider: BETH SCHAEFFER Common Visit Codes: [id number] INP/OBS CARE(HIGH) BETH SCHAEFFER Oct 19, 2024 13:50
--- NOTE | 2024-10-19 16:14 | DVHSR ---
APPROVED REPORT EXAM: Two-dimensional and M-mode echocardiogram with Doppler and color Doppler. Blood Pressure: 130/89 mmHg INDICATION Dyspnea symtomatic walker RISK FACTORS Height: 5'7, Weight: 180 DIMENSIONS LVDd4.1 (3.8-5.7cm)LA (2D)3.8 (1.9-4.0cm)Aortic Root3.9 (2.0-3.7cm) LVDs2.9 (2.5-4.0cm)LA (MM) (1.9-4.0cm)Aortic Cusp Exc2.0 (1.5-2.0cm) EF (%) 55.0 (55-70%)Rt. Atrium3.1 (1.9-4.0cm)Asc. Aorta cm IVSd1.2 (0.7-1.1cm)RV (D)3.7 (1.8-2.4cm) PWd0.8 (0.7-1.1cm) Mitral Valve MitralMitral Stenosis E wave0.58m/sMV Mean GR.mmHg A wave0.95m/sMV Peak GR.61mmHg E/A ratio0.62D MVAcm2 DECEL [id number] 1/2 Timems Aortic Valve Aortic ValveAortic Stenosis V10.66m/Rahul Mean GR.3mmHg V21.18m/Rahul Peak GR.6mmHg LVOT Diameter2.2 (1.8-2.4cm)Doppler AVA2.13cm2 Pulmonic Valve V20.82m/s Other Information Technically limited study due to body habitus.patient position. Conclusion LVEF 55-60%, mild lvh, mild diastolic dysfunction no significnat valve disease
[2024-10-20] VITALS (8 sets, daily range): BP systolic 115–128; BP diastolic 67–94; PULSE 49–103; RESP 16–18; TEMP 97–98.1; O2SAT 96–98
--- NOTE | 2024-10-20 09:51 | DVHPN2 ---
Reviewed: Care Plan, H&P, Labs, Medications, Previous Orders, Radiology Changes from previous H/P or p: No Changes Eyes: No Pain, No Vision change, No Conjunctivae inflammation, No Eyelid inflammation, No Other, No Redness ENT: No Ear pain, No Ear discharge, No Nose pain, No Nose discharge, No Nose congestion, No Mouth pain, No Mouth swelling, No Throat pain, No Throat swelling, No Other Cardiovascular: No Chest Pain, No Palpitations, No Orthopnea, No Paroxysmal Noc. Dyspnea, No Edema, No Lt Headedness, No Other Respiratory: No Cough, No Dry, No Shortness of breath, No SOB with excertion, No Wheezing, No Hemoptysis, No Pleuritic Pain, No Sputum, No Other Gastrointestinal: No Nausea, No Vomiting, No Abdominal Pain, No Diarrhea, No Constipation, No Melena, No Hematochezia, No Other Genitourinary: No Dysuria, No Frequency, No Incontinence, No Hematuria, No Retention, No Other Musculoskeletal: No other, No neck pain, No shoulder pain, No arm pain, No back pain, No hand pain, No leg pain, No foot pain Skin: No Rash, No Lesions, No Jaundice, No Bruising, No Other Objective Vitals Vital Signs Date Time Temp Pulse Resp B/P (MAP) Pulse Ox O2 Delivery O2 Flow Rate FiO2 10/20/24 05:00 98.1 82 18 125/75 (92) 98 98.1 10/19/24 20:00 Room Air* 0 21 Intake/Output Intake and Output 10/20/24 07:00 Intake Total 800 ml Balance 800 ml Intake Oral 800 ml # Voids 8 # Bowel Movements 1 Medications Current Medications Medications Dose Ordered Sig/Ruthie Route Start Time Stop Time Status Last Admin Dose Admin Ondansetron HCl 4 mg Q4HP PRN IV 10/18/24 07:15 Docusate Sodium 100 mg BIDPRN PRN PO 10/18/24 07:15 Acetaminophen 650 mg Q6HP PRN PO 10/18/24 07:15 Nitroglycerin 0.4 mg Q5MINP PRN SL 10/18/24 07:15 Morphine Sulfate 2 mg Q30M PRN IV 10/18/24 07:15 Atorvastatin Calcium 40 mg HS PO 10/18/24 22:00 10/19/24 21:09 40 MG Aspirin 81 mg DAILY PO 10/19/24 10:00 10/20/24 08:18 81 MG Clopidogrel Bisulfate 75 mg DAILY PO 10/19/24 10:00 10/20/24 08:18 75 MG Laboratory Results Laboratory Tests 10/19/24 04:54 Microbiology Microbiology Date/Time Source Procedure Growth Status 10/18/24 04:53 Blood Blood Culture - Preliminary NO GROWTH AFTER 48 HOURS OF INCUBATION. Resulted Labs and/or images reviewed: Labs reviewed by me, Image(s) reviewed by me Assessment/Plan Assessment/Plan Sinus tachycardia with trigeminy first-degree AV block and right bundle branch block cardiology consult by Dr. Burton appreciated, TSH normal Acute metabolic encephalopathy History of coronary artery disease and [place] 2023 status post stents x3, continue aspirin Plavix Lipitor Echo 55 % ejection fraction normal Rule out structural heart disease Hypertension Hypercholesterolemia: Lipitor History of Testicular cancer Obesity Acute lactic acidosis lactic acid 2.8 Patient is hospice revoked Time Spent 5 5 minutes Patient is full code Advanced care planning time 20 minutes Olga [phone], not at bed side Physical therapy ordered Plan discussed with: Patient My Orders Orders - SISSY BARNARD MD Procedure Category Date Status Time Communication Order ORDERS 10/19/24 Transmitted 10:48 Communication Order ORDERS 10/19/24 Transmitted 10:48 Soft Diet DIET 10/19/24 Transmitted Lunch Date of Service: Oct 20, 2024 Billing Provider: SISSY BARNARD MD Common Visit Codes: [id number] INP/OBS CARE(HIGH) SISSY BARNARD MD Oct 20, 2024 09:51
[2024-10-21 01:00] VITALS: BP 122/64; PULSE 64; RESP 17; TEMP 98.1; O2SAT 97
[2024-10-21 05:00] VITALS: BP 118/68; PULSE 60; RESP 16; TEMP 98.3; O2SAT 98
[2024-10-21 08:00] VITALS: PULSE 80; PULSE 92; RESP 18
[2024-10-21 09:00] VITALS: BP 127/84; PULSE 50; RESP 18; TEMP 97.8; O2SAT 96
[2024-10-21 09:42] VITALS: BP 126/57; PULSE 68; RESP 18; TEMP 98; O2SAT 97
--- NOTE | 2024-10-21 10:26 | DVHPN2 ---
Reviewed: Care Plan, H&P, Labs, Medications, Previous Orders, Radiology Changes from previous H/P or p: No Changes Eyes: No Pain, No Vision change, No Conjunctivae inflammation, No Eyelid inflammation, No Other, No Redness ENT: No Ear pain, No Ear discharge, No Nose pain, No Nose discharge, No Nose congestion, No Mouth pain, No Mouth swelling, No Throat pain, No Throat swelling, No Other Cardiovascular: No Chest Pain, No Palpitations, No Orthopnea, No Paroxysmal Noc. Dyspnea, No Edema, No Lt Headedness, No Other Respiratory: No Cough, No Dry, No Shortness of breath, No SOB with excertion, No Wheezing, No Hemoptysis, No Pleuritic Pain, No Sputum, No Other Gastrointestinal: No Nausea, No Vomiting, No Abdominal Pain, No Diarrhea, No Constipation, No Melena, No Hematochezia, No Other Genitourinary: No Dysuria, No Frequency, No Incontinence, No Hematuria, No Retention, No Other Musculoskeletal: No other, No neck pain, No shoulder pain, No arm pain, No back pain, No hand pain, No leg pain, No foot pain Skin: No Rash, No Lesions, No Jaundice, No Bruising, No Other Objective Vitals Vital Signs Date Time Temp Pulse Resp B/P (MAP) Pulse Ox O2 Delivery O2 Flow Rate FiO2 10/21/24 08:00 80 18 Room Air* 0 21 10/21/24 05:00 98.3 118/68 (85) 98 98.3 Intake/Output Intake and Output 10/21/24 07:00 Intake Total 2050 ml Balance 2050 ml Intake Oral 2050 ml # Voids 10 # Bowel Movements 1 Medications Current Medications Medications Dose Ordered Sig/Ruthie Route Start Time Stop Time Status Last Admin Dose Admin Ondansetron HCl 4 mg Q4HP PRN IV 10/18/24 07:15 Docusate Sodium 100 mg BIDPRN PRN PO 10/18/24 07:15 Acetaminophen 650 mg Q6HP PRN PO 10/18/24 07:15 Nitroglycerin 0.4 mg Q5MINP PRN SL 10/18/24 07:15 Morphine Sulfate 2 mg Q30M PRN IV 10/18/24 07:15 Atorvastatin Calcium 40 mg HS PO 10/18/24 22:00 10/20/24 22:13 40 MG Aspirin 81 mg DAILY PO 10/19/24 10:00 10/21/24 08:15 81 MG Clopidogrel Bisulfate 75 mg DAILY PO 10/19/24 10:00 10/21/24 08:14 75 MG Laboratory Results Laboratory Tests 10/19/24 04:54 Microbiology Microbiology Date/Time Source Procedure Growth Status 10/18/24 04:53 Blood Blood Culture - Preliminary NO GROWTH AFTER 72 HOURS OF INCUBATION. Resulted Labs and/or images reviewed: Labs reviewed by me, Image(s) reviewed by me Assessment/Plan Assessment/Plan Sinus tachycardia with trigeminy first-degree AV block and right bundle branch block cardiology consult by Dr. Burton appreciated, TSH normal Acute metabolic encephalopathy History of coronary artery disease and [place] 2023 status post stents x3, continue aspirin Plavix Lipitor Echo 55 % ejection fraction normal Rule out structural heart disease Hypertension Hypercholesterolemia: Lipitor History of Testicular cancer Obesity Acute lactic acidosis lactic acid 2.8 Patient is hospice revoked Time Spent 46 minute Patient is full code Advanced care planning time 20 minutes Olga [phone], at bedside Physical therapy ordered Plan discussed with: Patient Date of Service: Oct 21, 2024 Billing Provider: SISSY BARNARD MD Common Visit Codes: [id number] INP/OBS CARE(HIGH) SISSY BARNARD MD Oct 21, 2024 10:26
--- NOTE | 2024-10-21 10:30 | DVHDS2 ---
Discharge Summary Date of Admission Oct 18, 2024 at 07:12 Date of Discharge: Oct 21, 2024 Admitting Diagnosis Generalized weakness Wounds: None Labs/Diagnostic Data: Laboratory Results Test 10/19/24 04:54 10/18/24 06:59 10/18/24 03:40 10/18/24 02:52 White Blood Count 7.3 10^3/uL (4.4-10.8) Red Blood Count 5.09 10^6/uL (4.5-5.90) Hemoglobin 15.4 g/dL (13.5-17.5) Hematocrit 44.8 % (41.0-53.0) Mean Corpuscular Volume 88.1 fL (80.0-100.0) Mean Corpuscular Hemoglobin 30.3 pg (28.0-32.0) Mean Corpuscular Hemoglobin Concent 34.4 g/dL (32.0-36.0) Red Cell Distribution Width 14.4 % (11.8-14.3) Platelet Count 198 10^3/uL (140-450) Mean Platelet Volume 8.1 fL (6.9-10.8) Neutrophils (%) (Auto) 42.4 % (37.0-80.0) Lymphocytes (%) (Auto) 39.8 % (10.0-50.0) Monocytes (%) (Auto) 11.2 % (0.0-12.0) Eosinophils (%) (Auto) 6.1 % (0.0-7.0) Basophils (%) (Auto) 0.5 % (0.0-2.0) Neutrophils # (Auto) 3.1 10 ^3/uL (1.6-8.6) Lymphocytes # (Auto) 2.9 10 ^3/uL (0.4-5.4) Monocytes # (Auto) 0.8 10 ^3/uL (0-1.3) Eosinophils # (Auto) 0.5 10 ^3/uL (0-0.8) Basophils # (Auto) 0 10 ^3/uL (0-0.2) Nucleated Red Blood Cells 0.2 % Sodium Level 143 mmol/L (136-145) Potassium Level 3.8 mmol/L (3.5-5.1) Chloride Level 108 mmol/L (98-107) Carbon Dioxide Level 26 mmol/L (20-31) Anion Gap 9 (5-15) Blood Urea Nitrogen 22 mg/dL (9-23) Creatinine 0.94 mg/dL (0.700-1.30) Glomerular Filtration Rate Calc 80 mL/min (>90) BUN/Creatinine Ratio 23.4 (10.0-20.0) Serum Glucose 100 mg/dL (74-106) Calcium Level 8.9 mg/dL (8.7-10.4) Total Bilirubin 0.8 mg/dL (0.2-1.0) Aspartate Amino Transferase (AST) 23 U/L (<34) Alanine Aminotransferase (ALT) 25 U/L (7-40) Alkaline Phosphatase 78 U/L (46-116) Total Protein 6.5 g/dL (5.7-8.2) Albumin 3.9 g/dL (3.2-4.8) Lactic Acid Level 1.4 mmol/L (0.4-2.0) Troponin I High Sensitivity 5 ng/L (</=54) POC Glucose 118 mg/dl (70-106) Test 10/18/24 02:48 Prothrombin Time 10.9 sec (9.3-11.8) Prothrombin Time INR 1.03 (0.9-1.15) Activated Partial Thromboplast Time 27.1 SEC (24.5-34.5) Hemoglobin A1c 5.9 % A1C (<5.7) Magnesium Level 2.2 mg/dL (1.6-2.6) B-Type Natriuretic Peptide 48.22 pg/mL (0-100) Triglycerides Level 101 mg/dL (< 150) Cholesterol Level 177 mg/dL (< 200) LDL Cholesterol 118 mg/dL (< 100) HDL Cholesterol 42 mg/dL (40-59) Thyroid Stimulating Hormone (TSH) 1.61 uIU/mL (0.55-4.78) Other Laboratory Tests 10/19/24 04:54 Brief Hx & Hospital Course: 84-year-old male hospice hospice was revoked and admitted complained of generalized weakness found to have sinus tachycardia with a trigeminy with a first-degree AV block consult by Dr. Burton TSH normal. Advised avoid AV padmini blocks history of coronary artery disease with a MD 2023 status post stents on Plavix Lipitor echo 55 percent ejection fraction history of testicular cancer hypertension hypercholesterolemia patient feels better with a stable vital signs and requesting to be discharged home. He does not want to go back on hospice. Discharged home. He will continue all his previous home medications and follow up with his primary Dr. Consults/Reason for consult Cardiology Operations or Procedures None Condition at Discharge: Fair Final Diagnosis/Problems List Sinus tachycardia with trigeminy first-degree AV block and right bundle branch block cardiology consult by Dr. Burton appreciated, TSH normal Acute metabolic encephalopathy History of coronary artery disease and [place] 2023 status post stents x3, continue aspirin Plavix Lipitor Echo 55 % ejection fraction normal Rule out structural heart disease Hypertension Hypercholesterolemia: Lipitor History of Testicular cancer Obesity Acute lactic acidosis lactic acid 2.8 Patient is hospice revoked Discharge Disposition: Home Discharge Instruct/Medications Diet: Cardiac 2g Na,low cholest Activity: Light activity Follow Up/Referral: Resume all previous home medications Follow up with the primary Dr Medications: none 39 (Time taken for discharge summary 39 minutes) Discharge Statement: "Patient was advised to return to the ER or call 911 if any headaches, dizziness, shortness of breath, chest pain, abdominal pain, bleeding, fevers, or worsening of medical condition. Patient was counseled about treatment plan, medications, possible side effects, patientverbalized understanding. All questions were answered to the best of my ability. This discharge took greater then 30 minutes in planning, reviewing documentation, counseling the patient, and discussing with other team members." ASSESSMENT ASSESSMENT Hospital Course Improved Assessment Sinus tachycardia with trigeminy first-degree AV block and right bundle branch block cardiology consult by Dr. Burton appreciated, TSH normal Acute metabolic encephalopathy History of coronary artery disease and [place] 2023 status post stents x3, continue aspirin Plavix Lipitor Echo 55 % ejection fraction normal Rule out structural heart disease Hypertension Hypercholesterolemia: Lipitor History of Testicular cancer Obesity Acute lactic acidosis lactic acid 2.8 Patient is hospice revoked Date of Service: Oct 21, 2024 Billing Provider: SISSY BARNARD MD Common Visit Codes: [id number] DISCH DAY >30min SISSY BARNARD MD Oct 21, 2024 10:30
[2024-10-21 13:00] VITALS: BP 132/88; PULSE 49; RESP 18; TEMP 97.2; O2SAT 98
--- NOTE | 2024-10-24 14:13 | ECG ---
[facility] Test Date: 2024-10-18 Test Time: 07:06:17 Pat Name: TAYLOR TEJEDA Department: ED Room: 0277T A Gender: M Project Management Engineer: ED : 1940 Requested By: SARAH EID Order Number: [id number] Reading MD: Perez Bruton Measurements Intervals [place] Rate: 73 P: 65 DE: 231 QRS: 171 QRSD: 130 T: -4 QT: 423 QTc: 467 Interpretive Statements Sinus rhythm Ventricular bigeminy Prolonged DE interval RBBB and LPFB Inferior infarct, old Electronically Signed On 10-24-2024 22:25:40 PDT by Perez Burton Please click the below link to view image of tracing.
== END 2024-10-21 17:51 | disposition hospice, home (50) | DRG 308 ==
LOC: ER 02:23 → EDBD 02:23 → OVERFLOW 07:12 → TELE-WESTW 11:27
PROVIDERS: ADMIT Family Medicine; ATTEND Family Medicine
DX: I44.0 Atrioventricular block, first degree (principal); G93.41 Metabolic encephalopathy; E87.21 Acute metabolic acidosis; I25.10 Atherosclerotic heart disease of native coronary artery without angina pectoris; E78.00 Pure hypercholesterolemia, unspecified; E66.9 Obesity, unspecified; I10 Essential (primary) hypertension; I49.3 Ventricular premature depolarization; J98.4 Other disorders of lung; Z79.899 Other long term (current) drug therapy; I25.2 Old myocardial infarction; Z51.5 Encounter for palliative care; Z85.47 Personal history of malignant neoplasm of testis; Z98.61 Coronary angioplasty status; Z79.82 Long term (current) use of aspirin
CPT/HCPCS: 36415; 71045; 80053; 80061; 82962; 83036; 83605; 83735; 83880; 84443; 84484; 85025; 85610; 85730; 87040; 93005; 93306; 96365; 96375; 97163; G0378